=== PATIENT | male | born 1995 | race Caucasian/White ===

== ENCOUNTER 2024-07-28 21:34 | Emergency (ER) | payer BC, SELFPAY ==
[2024-07-28 21:49] VITALS: BP 136/112; PULSE 72; RESP 16; TEMP 36.2; O2SAT 100
--- OUTSIDE RECORDS SUMMARY | 2024-07-29 01:49 | XMS_ITS | Encounter Summary ---
Author Organization [facility] Address [facility] [place] [address] Care Team Providers Care Custom Frame Assembler Name Role Phone None, Provider Primary Care Provider Unavaila ble Encounter Details Date Type Department Care Team (Late st Contact Info) Description 01/23/2024 Telephone [facility] DEFAULT None, Provider, MD Social History Tobacco Use Types Packs/Day Years Used Date Smoking Tobacco: Never Smokeless Tobacco: Never Sex and Gender Information Value Date Recorded Sex Assigned at Not on file Legal Sex Male 8:35 PM CDT Gender Identity Not on file Sexual Orientation Not on file documented as of this encounter Plan of Treatment Not on file documented as of this encounter Visit Diagnoses Not on filedocumented in this encounter Care Teams Custom Frame Assembler Relationship Specialty Start Date End Date None, ProviderMD PCP - General 07/16/19 documented as of this encounter
--- OUTSIDE RECORDS SUMMARY | 2024-07-29 01:49 | XMS_ITS | Clinical Summary ---
Author Organization [facility] Address [facility] [place] [address] Care Team Providers Care Manual Lathe Machinist Name Role Phone None, Provider MD Primary Care Provider Unavaila ble Allergies No known active allergies Medications No known medications Active Problems No known active problems Immunizations Immunization Administration Dates Next Due MODERNA COVID-19 (12+) MRNA, LNP-S, PF, 100 MCG/ 0.5 ML DOSE 04/13/2020,03/17/2020 Social History Tobacco Use Types Packs/Day Years Used Date Smoking Tobacco: Never Smokeless Tobacco: Never Sex and Gender Information Value Date Recorded Sex Assigned at Not on file Legal Sex Male 8:35 PM CDT Gender Identity Not on file Sexual Orientation Not on file Last Filed Vital Signs Vital Sign Reading Time Taken Comments Blood Pressure 124/86 01/07/2024 9:47 AM [employer] Pulse 58 01/07/2024 9:47 AM [employer] Temperature 36.3 C (97.4 F) 01/07/2024 9:47 AM [employer]STER Respiratory Rate 16 01/07/2024 9:47 AM [employer]STER Oxygen Saturation 99% 01/07/2024 9:47 AM [employer] HAR[employer] Inhaled Oxygen Concentration - - Weight 127.5 kg (281 lb) 01/07/2024 9:47 AM [employer] HAR[employer] Height 177.8 cm (5' 10) 01/07/2024 9:47 AM [employer] HAR[employer]STER Body Mass Index 40.32 01/07/2024 9:47 AM [employer] HAR[employer] Plan of Treatment Health Maintenance Due Date Last Done Comments Annual Physical 1997 Hepatitis C 2012 PHQ-2 (Physician Amistad) 02/11/2024 DTaP, Tdap and Td Vaccines (5 - Td or Tdap) 01/30/2031 01/30/2021, 01/15/2010, 09/20/1999, Additional history exists Hepatitis B Vaccines Completed 03/04/1995, 1994, 1994 Meningococcal Vaccine Aged Out 04/30/2010 No jaylyn aida eligible based on patient's age to complete this topic HPV Vaccines Completed 08/02/2010, 04/11, 01/15/2010 COVID-19 Vaccine Completed 01/01/2024, 12/2022, 12/24/2021, Additional history exists Meningococcal B Vaccine Aged Out No l onger eligible based on patient's age to complete this topic Pneumococcal Vaccine: Pediatrics (0 to 5 Years) and At-Risk Patients (6 to 49 Years) Aged Out No longer eligible based on patient's age to complete this topic RSV Immunizations Under 20 Months Aged Out No longer eligible based on patient's age to complete this topic Insurance Care Teams Manual Lathe Machinist Relationship Specialty Start Date End Date None, Provider, PCP - General 07/16/19
[2024-07-29 02:00] VITALS: BP 118/73; PULSE 90; RESP 19; O2SAT 100
[2024-07-29 02:03] LABS: Anion Gap 9 mmol/L (4-12); Blood Urea Nitrogen 21 mg/dL (9-20); Calcium 9.5 mg/dL (8.4-10.2); Carbon Dioxide 26 mmol/L (22-30); Chloride 103 mmol/L (98-107); Estimated CRCL calculation 139 ml/min; Estimated Glomerular Filt Rate > 60; Glucose 106 mg/dL (65-110); Potassium 4.2 mmol/L (3.4-5.0); Sodium 138 mmol/L (137-145)
--- NOTE | 2024-07-29 02:05 | ED.EXTPRO ---
HPI - Extremity Problem General Chief complaint: Extremity Problem,Nontraumatic Stated complaint: leg pain Time Seen by Provider: 07/29/24 01:26 History of Present Illness HPI Narrative: 28-year-old otherwise healthy male presenting to the emergency department for evaluation of some spots in his right leg. He is not sure what causes them or if he got bit by any insects but knows that he had some pain in his right leg localized to very pinpoint area in his posterior thigh/medial leg. No trauma or injury, no systemic features fever, chills. He is worried about a blood clot. No history of thromboembolic disease or blood clots. No long travel recent surgeries, does not take any medications. Related Data Allergies Allergy/AdvReac Type Severity Reaction Status Date / Time No Known Allergies Allergy Verified 07/29/24 02:38 Review of Systems Review of Systems: As reviewed above in HPI Exam Narrative: GENERAL: [Well-appearing, well-nourished, and in no acute distress.] HEAD: [Normocephalic, atraumatic.] EYES: [PERRLA and EOMI.] ENT: Nares clear, no rhinorrhea or epistaxis. Mucous membranes moist. NECK: Supple. CHEST: [Clear to auscultation. No respiratory distress.] HEART: [Regular rate and rhythm]. No murmur heard. [Normal peripheral pulses.] ABDOMEN: [Soft, nondistended], [nontender], [No rigidity or guarding] EXTREMITIES: Normal range of motion. [No edema.] SKIN: Small circular area of redness in the medial distal thigh that is mildly tender to palpation without any obvious punctate wound or palpable abscess/cellulitis findings. No drainage, no spreading or cellulitis symptoms. NEURO: [No focal deficits]. Alert and oriented [x3.] PSYCH: [Normal mood and affect.] Course Vital Signs Vital signs: Vital Signs Temperature 36.2 C L 07/28/24 21:49 Pulse Rate 72 07/28/24 21:49 Respiratory Rate 16 07/28/24 21:49 Blood Pressure 136/112 H 07/28/24 21:49 Pulse Oximetry 100 07/28/24 21:49 Oxygen Delivery Room Air 07/28/24 21:49 Temperature 36.2 C L 07/28/24 21:49 Pulse Rate 90 07/29/24 02:00 Respiratory Rate 19 07/29/24 02:00 Blood Pressure 118/73 07/29/24 02:00 Pulse Oximetry 100 07/29/24 02:00 Oxygen Delivery Room Air 07/28/24 21:49 MDM - Extremity (Nontraumatic) MDM Narrative Medical decision making narrative: 28-year-old male presenting with spot on his right medial leg that he is concerned could be a blood clot. Patient has no history of thromboembolic disease or blood clots, no DVTs or history of surgery, long travel or any supplement use. Noticed it this morning. It is examination is benign without any leg swelling or asymmetry. He is afebrile with normal vital signs. Small spot on his right leg could very well be a by insect bite or spider bite but no signs of infection or inflammation. Patient is very concerned about blood clot. We do not have ultrasonography capabilities at this time, laboratory studies including a dimer, BMP in coagulation panel is obtained to rule this in or out and patient can be safely discharged home if unremarkable. D-dimer is negative, normal coagulation panel, normal BMP. Patient can safely be discharged. Lab Data 07/29/24 01:42 Labs: Lab Results 07/29/24 Range/Units 01:42 PT 13.2 (11.1-14.7) Seconds INR 1.0 APTT 28.5 (22.3-36.8) Seconds D-Dimer < 0.27 (<0.48) ug/mL Sodium 138 (137-145) mmol/L Potassium 4.2 (3.4-5.0) mmol/L Chloride 103 (98-107) mmol/L Carbon Dioxide 26 (22-30) mmol/L Anion Gap 9 (4-12) mmol/L BUN 21 H (9-20) mg/dL Creatinine 0.89 (0.7-1.3) mg/dL Estim Creat Clear Calc 139 ml/min Estimated GFR > 60 (59 - ) Glucose 106 (65-110) mg/dL Calcium 9.5 (8.4-10.2) mg/dL Discharge Plan Discharge Clinical Impression: Pain in right leg Patient Disposition: Home Condition: Stable Instructions: Antibiotic Form Additional Instructions: All your laboratory studies are good. No signs of a blood clot on your labs. Follow-up with your regular doctors as needed, Tylenol and ibuprofen for any aches or pains. Return with any emergent concerns. Patient Language: [place] Follow-up/Referrals: UNKNOWN,DOCTOR [Primary Care Provider] - Time of Disposition: 02:30
[2024-07-29 02:07] LABS: Partial Thromboplastin Time 28.5 Seconds (22.3-36.8); Prothrombin Time 13.2 Seconds (11.1-14.7)
[2024-07-29 02:10] LABS: D Dimer < 0.27 ug/mL (<0.48)
== END 2024-07-29 02:45 | disposition home or self-care (01) ==
PROVIDERS: Emergency Provider Student in an Organized Health Care Education/Training Program
DX: M79.651 Pain in right thigh (principal)
CPT/HCPCS: 36415; 80048; 85380; 85610; 85730; 99283